=== PATIENT | male | born 1970 | race Caucasian/White ===

== ENCOUNTER 2017-09-24 09:32 | Outpatient (CLI) | payer OTHER ==
--- NOTE | 2017-09-24 10:59 | Mammography Report ---
BILATERAL DIGITAL DIAGNOSTIC MAMMOGRAM with CAD and RIGHT BREAST ULTRASOUND: 09/24/17 10:00:00 CLINICAL: 47-year-old male with right mastodynia. COMPARISON:None. FINDINGS: Relatively fatty breasts.Right retroareolar fibroglandular densities versus a poorly marginated mass measuring approximately 3.5 cm. Minimal left retroareolar fibroglandular structures. No architectural distortion or suspicious calcifications. Ultrasound of the right breast (including all four quadrants and the retroareolar area) was performed and demonstrated a suspicious oval irregular retroareolar mass at 6 o'clock measuring 3.6 x 2.0 x 2.0 cm. IMPRESSION: A suspicious 3.6 cm right retroareolar breast mass. Recommend ultrasound guided needle core biopsy. BI-RADS CATEGORY: 4C--Moderately Suspicious For Malignancy COMMENT: Patient follow-up letters are generated by our [employer] application.
== END 2017-09-24 09:33 | disposition home or self-care (01) ==
LOC: MAMMO 09:32
PROVIDERS: ATTEND Family Medicine
DX: N64.4 Mastodynia (principal); N63.10 Unspecified lump in the right breast, unspecified quadrant; N64.89 Other specified disorders of breast; Z79.2 Long term (current) use of antibiotics
CPT/HCPCS: 76641; G0204; 77066

== ENCOUNTER 2017-11-04 12:38 | Outpatient (CLI) | payer OTHER ==
--- NOTE | 2017-11-04 14:41 | Mammography Report ---
RIGHT DIGITAL DIAGNOSTIC MAMMOGRAM: 11/04/17 12:38:00 CLINICAL: For clip placement immediately status post ultrasound biopsy. COMPARISON:09/24/17 FINDINGS: A biopsy clip is now identified in the retroareolar area and correlates with the previously described lesion. IMPRESSION: Concordant clip placement status post ultrasound biopsy. BI-RADS CATEGORY: 4--Suspicious Pathology pending.
--- NOTE | 2017-11-05 08:50 | Ultrasound Report ---
ULTRASOUND GUIDED NEEDLE CORE BIOPSY and ULTRASOUND GUIDED NEEDLE ASPIRATION RIGHT BREAST WITH CLIP PLACEMENT: 11/04/17 CLINICAL: Suspicious retroareolar mass and a 47-year-old male. COMPARISON :09/24/17 FINDINGS: The procedure was explained to the patient and informed consent was obtained. Ultrasound demonstrated the previously described heterogeneous hypoechoic retroareolar mass. The shape of the mass has changed with the lesion being flatter with a better defined hypoechoic center and an irregular thick wall. It now measures 2.1 x 0.9 x 2.0 cm. I marked the breast with a felt tip marker and a time out was called. The skin was prepped with Betadine and anesthetized with 1% lidocaine. Needle core biopsy was performed through a tiny dermatotomy using ultrasound guidance, 2% lidocaine with epinephrine for deep anesthesia and a 14-gauge Achieve biopsy device. 3 cores were obtained and placed in formalin. It was apparent at the time of the biopsy that the center of the lesion contains fluid. Ultrasound-guided needle aspiration was then performed with a 20-gauge needle. A tiny amount of thick dark bloody fluid was obtained and was sent to the lab for analysis. A clip was deployed within the lesion The patient tolerated the procedure well and there were no apparent complications. Hemostasis was achieved with minimal pressure and a sterile dressing was applied. A two view mammogram demonstrated concordant placement of the clip. He left the department in good condition and was given instructions for wound care and followup. IMPRESSION: Uncomplicated ultrasound guided needle core biopsy with clip placement right breast and ultrasound guided needle aspiration right breast. The morphology and change in size of the biopsy lesion now suggests that this is more likely an inflammatory lesion with small abscess formation.
== END 2017-11-04 12:39 | disposition home or self-care (01) ==
LOC: SPVWC 12:38
PROVIDERS: ATTEND Family Medicine
DX: N60.11 Diffuse cystic mastopathy of right breast (principal)
CPT/HCPCS: 19000; 19083; 77065; 88305; A4648; 87116